=== PATIENT | female | born 2000 | race Caucasian/White ===

== ENCOUNTER 2023-11-16 00:24 | Emergency (ER) | payer OTHER, SELFPAY ==
[2023-11-16 00:29] VITALS: BP 141/71
--- NOTE | 2023-11-16 00:35 | ED.GENMED ---
History of Present Illness
<JUAN PABLO Delarosa - Last Filed: 11/16/23 03:59>
General
Chief Complaint: Headache
Time Seen by Provider: 11/16/23 00:35
History of Present Illness
History of Present Illness:
This is a 23 yo Female presenting for headache x 2 weeks, which she states became more severe today. She states she hit the back of her head falling on the ground while playing football 2 weeks ago. Since then, she describes a constant moderate
headache which developed gradually located posteriorly. Today, the headache worsened to a 7/10 in severity and is associated with sensitivity to light. She states she vomited once on the day of injury and once 2 days ago after feeling nauseous in
the car. She has tried tylenol for pain which has not improved the pain.
She admits to one episode of dizziness while playing tennis a couple days ago, which resolved with rest. She denies lightheadedness, fatigue, numbness, tingling, loss of consciousness.
<Hubert Ross DO - Last Filed: 11/16/23 01:13>
Travel History
Have you had any contact with someone who has COVID-19?: No
Do you have any symptoms of coronavirus? Fever > 100 degrees, chills, cough, shortness of breath, sore throat, loss of taste or smell, muscle aches, or headache?: No
Past History
<Hubert Ross DO - Last Filed: 11/16/23 01:13>
Past History
ED Past Medical History: None
ED Past Surgical History: None
Social History
Tobacco: Non-smoker
Alcohol: None
Review of Systems
<JUAN PABLO Delarosa - Last Filed: 11/16/23 03:59>
Review of Systems
Allergies reviewed?: Yes
Constitutional: Reports no symptoms
EENT: Reports no symptoms
Respiratory: Reports no symptoms
Cardiac: Reports no symptoms
ABD/GI: Reports vomiting
: Reports no symptoms
Neurological: Reports dizzy and headache
Psychiatric: Reports no symptoms
Phy Exam
<JUAN PABLO Delarosa - Last Filed: 11/16/23 03:59>
General Physical Exam
General Presentation: well appearing
General age: appears stated age
General Habitus: normal
General Mental: alert
Eye Exam
Eye Exam: PERRL and EOMI
Cardiovascular Exam
Cardiovascular Exam: regular rate/rhythm
Neurological Exam
Neurological Exam: alert, oriented x3, no motor deficits, no sensory deficits, speech normal and normal gait
Skin Exam
Skin Exam: normal color
Psychiatric Exam
Psychiatric Exam: normal mood/affect
Course
<JUAN PABLO Delarosa - Last Filed: 11/16/23 03:59>
Orders/Labs/Results
Orders:
Orders
11/16/23 01:12
CT Head W/o Iv Contrast Urgent
Comment:
Reason For Exam: head injury 2wks ago worsening symptoms
Vital Signs
Initial and Last Documented VS:
Initial Vital Signs
Temp Pulse Resp BP Pulse Ox
98.2 F 76 18 141/71 99
11/16/23 00:29 11/16/23 00:29 11/16/23 00:29 11/16/23 00:29 11/16/23 00:29
Last Documented Vital Signs
Temp Pulse Resp BP Pulse Ox
98.2 F 76 18 141/71 99
11/16/23 00:29 11/16/23 00:29 11/16/23 00:29 11/16/23 00:29 11/16/23 00:29
<Hubert Ross DO - Last Filed: 11/16/23 01:13>
Orders/Labs/Results
Orders:
Orders
11/16/23 01:12
CT Head W/o Iv Contrast Urgent
Comment:
Reason For Exam: head injury 2wks ago worsening symptoms
Vital Signs
Initial and Last Documented VS:
Initial Vital Signs
Temp Pulse Resp BP Pulse Ox
98.2 F 76 18 141/71 99
11/16/23 00:29 11/16/23 00:29 11/16/23 00:29 11/16/23 00:29 11/16/23 00:29
Last Documented Vital Signs
Temp Pulse Resp BP Pulse Ox
98.2 F 76 18 141/71 99
11/16/23 00:29 11/16/23 00:29 11/16/23 00:29 11/16/23 00:29 11/16/23 00:29
<JUAN PABLO Delarosa - Last Filed: 11/16/23 03:59>
MDM/Problems Addressed
Differential Diagnosis Includes:
Post Concussion Syndrome
-Head injury 2 weeks ago with episodes of vomiting, dizziness, and a constant, worsening headache with sensitivity to light
Rule out hemorrhagic stroke
-Non contrast head CT
-Has been 2 weeks since injury
<JUAN PABLO Delarosa - Last Filed: 11/16/23 03:59>
*Radiology
Radiology exam reviewed: preliminary read by ED provider and radiology read reviewed
*Critical Care Note
Total Time (30-74mins, 75-104mins- exclusive of procedures): Not Applicable
<JUAN PABLO Delarosa - Last Filed: 11/16/23 03:59>
Update Note
Update Note:
Patient was informed about CT scan with no abnormal findings. She was educated about her concussion symptoms and informed about cognitive rest and avoidance of further head trauma. Instructed to take OTC pain meds as needed for headache.
ED Attending Note
<Hubert Ross DO - Last Filed: 11/16/23 01:13>
ED Attending Note
Patient seen and examined by attending physician: Yes
I performed the substantive portion of visit, reviewed & personally made and approve the management plan that is documented in note by myself or RICARDO.: Yes
I performed a history and physical exam of patient and discussed management with resident, I reviewed resident's note and agree with documented findings and plan of care.: Yes
ED Attending Note:
I evaluated the patient at bedside. The patient has a nonfocal neurologic examination. Suspect more of a concussion however the patient does not report any confusion or feeling like she is in a fog. She does have some nausea and vomited after the
head injury occurred 2 weeks ago and then vomited again more recently. Given persistent/worsening symptoms will obtain CT imaging of the brain.
-
Portions of this chart may have been created with voice recognition software.� Occasional wrong word or��sound alike� substitutions may have occurred due to the inherent limitations of voice recognition software.
Discharge Plan
Departure
Patient Disposition: Home (Routine Discharge)
Date of Disposition: 11/16/23
Time of Disposition: 03:36
Patient with high blood pressure during this ER visit?: Yes
Discharge Problem:
Concussion
Prescriptions:
No Action
No Current Medications
0
Referrals:
Monroe Leavitt MD [Family Provider] -
Activity Restrictions/Additional Instructions:
The CAT scan of the brain shows no acute abnormality. Your symptoms are likely due to at least a mild concussion. I recommend cognitive rest and I also strongly recommend against doing anything he could potentially get struck in the head again.
Return here if worse.
Interventions
Interventions:
*Risk Screen - Suicide Last Done: 11/16/23 00:32
*General Assessment Last Done: 11/16/23 00:32
*Neglect/Abuse Screening Last Done: 11/16/23 00:32
ED- Fall Risk Assessment Last Done: 11/16/23 00:42
*ED COVID-19 Vaccine History Last Done: 11/16/23 00:32
ED- Neurological Assessment Last Done: 11/16/23 00:42
Discharge Date and Time
Print Language: GERMAN
[2023-11-16 00:50] VITALS: BMI 35.5
[2023-11-16 01:40] VITALS: BP 94/59
[2023-11-16 04:00] VITALS: BP 112/68
== END 2023-11-16 04:05 | disposition home or self-care (01) ==
LOC: EMR 00:24
PROVIDERS: EMERGENCY PHYSICIAN Emergency Medicine; FAMILY PHYSICIAN Family Medicine
DX: S06.0XAA Concussion with loss of consciousness status unknown, initial encounter (principal); W19.XXXA Unspecified fall, initial encounter
CPT/HCPCS: 99284; 70450